=== PATIENT | female | born 1995 | race Caucasian/White ===

== ENCOUNTER 2019-10-10 21:56 | Emergency (ER) | payer OTHER ==
[~2019-10-10] VITALS: Ht 167.6 cm; Wt 81.6 kg
[2019-10-10 22:08] VITALS: BP 150/93
--- NOTE | 2019-10-10 22:18 | NUR ---
Dr. Tran examining patient.
[2019-10-10] MEDS ORDERED: KETOROLAC 60 MG/2 ML VIAL IM ONE (22:30)
--- NOTE | 2019-10-10 22:37 | NUR ---
24 Y/O FEMALE PRESENTS TO ED, C/O CHEST PAIN 06/09. PT STATES PAIN IS ONGOING AND CONSISTENT FOR PAST 2 MONTHS. PAIN IS ON LEFT SIDE OF CHEST AND RADIATES TO STERNUM REGION. PT DENIES ANY N/V. NO DIZZINESS/HEADACHE NOTED PER PT. NO SOB/DIFFICULTY BREATHING NOTED. PT STATES SEEING DOCTOR AND BEING DX WITH MUSCLE STRAIN. PT ABLE TO AMBULATE WITH STEADY GAIT. PT VSS. PLACED ON MONITOR. ERMD AWARE. WILL CONTINUE TO MONITOR.
[2019-10-10 23:40] VITALS: BP 141/81
--- NOTE | 2019-10-10 23:40 | NUR ---
PT DISCHARGED WITH PAPERWORK. EDUCATED PT REGARDING MEDICATIONS AND D/C INSTRUCTIONS. PT VERBALIZED UNDERSTANDING OF TEACHING. TOLD PT TO FOLLOW UP WITH PCP AND WHEN TO RETURN TO ED. PT AT STABLE CONDITION. ALL QUESTIONS ANSWERED.
== END 2019-10-10 23:40 | disposition home or self-care (01) ==
LOC: MED 21:56
DX: R07.89 Other chest pain (principal); R05 Cough; R11.2 Nausea with vomiting, unspecified; R30.0 Dysuria; J45.909 Unspecified asthma, uncomplicated; E11.9 Type 2 diabetes mellitus without complications
CPT/HCPCS: 81002; 96372; 99283; J1885

== ENCOUNTER 2023-01-17 14:28 | Emergency (ER) | payer OTHER ==
[~2023-01-17] VITALS: Ht 165.1 cm; Wt 94.3 kg
[2023-01-17 14:34] VITALS: BP 148/79
--- NOTE | 2023-01-17 14:40 | NUR ---
PT AMBULATED TO CHAIR A. DR. THOMAS MADE AWARE OF PATIENT PRESENTATION.
--- NOTE | 2023-01-17 14:43 | NUR ---
RT PAGED FOR BREATHING TX ORDER.
--- NOTE | 2023-01-17 14:44 | NUR ---
DR. THOMAS EVALUATING PATIENT IN TRIAGE ROOM
[2023-01-17] MEDS ORDERED: ALBUTEROL SULFATE/IPRATROPIU 3 ML SOL IH ONE (14:45)
--- NOTE | 2023-01-17 14:49 | NUR ---
RT AT BEDSIDE FOR BREATHING TX
--- NOTE | 2023-01-17 15:21 | NUR ---
PT FROM CHAIR A TO LOBBY PENDING RAD/COVID RESULTS.
--- NOTE | 2023-01-17 15:28 | NUR ---
PT TO RAD VIA W/C
--- NOTE | 2023-01-17 15:31 | NUR ---
PATIENT RETURNED FROM RAD VIA W/C TO LOBBY
--- NOTE | 2023-01-17 16:12 | NUR ---
PT STATES + RELIEF TO SYMPTOMS. NO RESPIRATORY DISTRESS NOTED AT THIS TIME.
[2023-01-17] MEDS ORDERED: CETI-24 PO (16:16)
[2023-01-17] MEDS ORDERED: METH4TAB1 PO (16:16)
[2023-01-17] MEDS ORDERED: ALBU0.0912 INH (16:16)
--- NOTE | 2023-01-17 17:00 | NUR ---
Patient discharged with v/s stable. Written and verbal after care instructions acute asthma exacervation given and explained. Patient verbalized understanding. Ambulatory with steady gait. All questions addressed prior to discharge. Advised to follow up with PMD. Pt. awake and alert, no resp. difficulty, speaking in full sentences. Agress to discharge states feeling better. Lungs clear with no wheezing. Speaking in full sentences. Stable to D/C home
[2023-01-17 17:15] VITALS: BP 128/71
== END 2023-01-17 17:00 | disposition home or self-care (01) ==
LOC: MED 14:28
DX: J45.901 Unspecified asthma with (acute) exacerbation (principal); Z20.822 Contact with and (suspected) exposure to COVID-19; E11.9 Type 2 diabetes mellitus without complications; Z79.4 Long term (current) use of insulin; Z79.899 Other long term (current) drug therapy
CPT/HCPCS: 71045; 94640; 99285